=== PATIENT | male | born 1950 | race Caucasian/White ===

== ENCOUNTER → 2019-06-19 | Outpatient (CLI) | payer OTHER, BC ==
[~2019-06-19] MED LIST: AMLODIPINE BESY10 MG PO
== END | disposition home or self-care (01) ==
LOC: LITH 08:49
DX: N20.1 Calculus of ureter (principal); I10 Essential (primary) hypertension; Z86.010 Personal history of colon polyps; Z85.46 Personal history of malignant neoplasm of prostate; Z98.890 Other specified postprocedural states; Z88.8 Allergy status to other drugs, medicaments and biological substances; Z79.899 Other long term (current) drug therapy